=== PATIENT | female | born 1970 | race Caucasian/White ===

== ENCOUNTER 2020-08-20 16:07 | Outpatient (CLI) | payer BC ==
[2020-08-21 01:28] LABS: SARS-CoV-2 PCR by NAA Not Detected (NotDetected)
== END 2020-08-20 16:08 | disposition home or self-care (01) ==
LOC: CSHLAB 16:07
PROVIDERS: ATTEND Student in an Organized Health Care Education/Training Program
DX: Z20.822 Contact with and (suspected) exposure to COVID-19 (principal)
CPT/HCPCS: 87635; U0003; U0005

== ENCOUNTER 2020-08-24 10:59 | Day surgery (SDC) | payer BC ==
[2020-08-20 15:23] VITALS: BMI 33.6
[2020-08-24] MEDS ORDERED: Gabapentin 300 MG CAP ONE (11:08)
[2020-08-24] MEDS ORDERED: Famotidine/PF 20 mg/2ml Vial ONE (11:08)
[2020-08-24] MEDS ORDERED: Lidocaine 1% MPF 2 ML VIAL ONE (11:08)
[2020-08-24] MEDS ORDERED: CeleCOXIB 100 MG CAP PO SCH (11:15)
[2020-08-24 11:51] LABS: Mean Corpuscular HGB CONC 33.9 g/dL (32.0-36.0); Mean Corpuscular Hemoglobin 30.1 pg (27.0-33.0); Mean Corpuscular Volume 88.6 fl (81.6-98.3); Mean Platelet Volume 9.3 fl (7.4-10.4); Platelet Count 298 10x3/uL (150-450); RBC Distribution Width 12.6 % (11.5-14.5); Red Blood Cell (RBC) Count 4.99 10x6/uL (3.90-5.03); White Blood Cell (WBC) Count 8.6 10x3/uL (3.5-10.5)
[2020-08-24] MEDS ORDERED: PROPOFOL 20 ML ONE (12:25)
[2020-08-24] MEDS ORDERED: Fentanyl 100 MCG/2 ML VIAL ONE ×3 (12:25→16:00)
[2020-08-24] MEDS ORDERED: EPINEPHrine 1 MG/ML AMP ONE (12:34)
[2020-08-24] MEDS ORDERED: Bupivacaine PF 0.5% 30 ML VIAL ONE (12:34)
[2020-08-24] MEDS ORDERED: Midazolam HCl 2 mg/2 ml Vial ONE (12:41)
[2020-08-24] MEDS ORDERED: ePHEDrine 50 MG/ML VIAL ONE (14:53)
[2020-08-24] MEDS ORDERED: Glycopyrrolate 0.2 MG/ML 5 ML SYRINGE ONE (15:24)
[2020-08-24] MEDS ORDERED: Ondansetron PF 4 MG/2 ML Vial ONE ×2 (15:26→17:52)
== END 2020-08-24 18:40 | disposition home or self-care (01) ==
LOC: CSHSDC 10:59
PROVIDERS: ATTEND Student in an Organized Health Care Education/Training Program
PROC: 0UT04ZZ Resection of Right Ovary, Percutaneous Endoscopic Approach (ICD-10-PCS; principal; 2020-08-24)
PROC: 0UT74ZZ Resection of Bilateral Fallopian Tubes, Percutaneous Endoscopic Approach (ICD-10-PCS; principal; 2020-08-24)
DX: N83.11 Corpus luteum cyst of right ovary (principal); N83.8 Other noninflammatory disorders of ovary, fallopian tube and broad ligament; Z79.899 Other long term (current) drug therapy
CPT/HCPCS: 85027; 86850; 86900; 86901; 88305; J0171; J0690; J2250; J2405; J2704; J3010; J3490; S0020; S0028